=== PATIENT | male | born 1980 ===

== ENCOUNTER 2020-07-25 16:07 | Emergency (ER) | payer SELFPAY ==
--- NOTE | 2020-07-25 18:07 | Event Note ---
ED Screening Note ED Screening Note: Patient is a 40-year-old male presents emergency room complaints of upper abdominal pain that began 4 days ago He has associated abdominal bloating He denies any fever, nausea, vomiting, diarrhea, hematochezia, melena, hematemesis He states he had a normal bowel movement today He states his past abdominal surgical history is appendectomy Has a past medical history of hyperlipidemia, PUD, diabetes He denies any medication allergies He denies any smoking history or drug use He reports he is a heavy alcohol drinker, 6-10 beers a day Patient has generalized upper abdominal tenderness palpation, his abdomen is distended, no guarding or rebound This initial assessment/diagnostic orders/clinical plan/treatment(s) is/are subject to change based on patients health status, clinical progression and re- assessment by fellow clinical providers in the ED. Further treatment and workup at subsequent clinical providers discretion. Patient/guardian urged not to elope from the ED as their condition may be serious if not clinically assessed and managed. Initial orders include: Labs, urine, CT
[2020-07-25 18:41] LABS: Bilirubin,Urine NEG (Negative); Blood,Urine NEG (Negative); Color,Urine Yellow (Yellow); Mucus,Urine 1+ /HPF; Protein,Urine <15 mg/dL mg/dL (Negative); WBC,Urine < 1.0 /HPF (0.0-6.0)
[2020-07-25 19:16] LABS: Basophils % (Auto) 0.6 % (0.0-1.8); Eosinophils # (Auto) 0.3 K/mm3 (0.0-0.4); Eosinophils % (Auto) 3.5 % (0.0-4.3); Hematocrit 43.7 % (35.5-45.6); Hemoglobin 14.7 gm/dl (11.8-15.2); Lymphocytes # (Auto) 2.6 K/mm3 (1.2-5.4); Lymphocytes % (Auto) 30.2 % (13.4-35.0); Mean Corpuscular HGB Conc 34 % (32-34); Mean Corpuscular Volume 93 fl (84-94); Monocytes # (Auto) 0.7 K/mm3 (0.0-0.8); Platelet Count 217 K/mm3 (140-440); Red Blood Count 4.71 M/mm3 (3.65-5.03); Red Cell Distribution Width 12.8 % (13.2-15.2)
[2020-07-25 19:34] LABS: Alanine Aminotransferase 116 units/L (7-56); Albumin 4.4 g/dL (3.9-5); BUN/Creatinine Ratio 14; Blood Urea Nitrogen 10 mg/dL (9-20); Calcium 9.4 mg/dL (8.4-10.2); Hemolysis Index 6
--- NOTE | 2020-07-25 22:56 | Cat Scan Report ---
CT ABDOMEN AND PELVIS WITH CONTRAST HISTORY: upper abd pain, abd distension, heavy ETOH use. COMPARISON: None. TECHNIQUE: CT images of the abdomen and pelvis were obtained following administration of intravenous contrast. All CT scans at this location are performed using CT dose reduction for ALARA by means of automated exposure control. CONTRAST: 100 ml of intravenous contrast administered. FINDINGS: Lungs/bones: Lung bases are clear Abdomen/pelvis: There is diffuse fatty infiltration liver. No focal liver lesion. The spleen, adrena l glands, pancreas, gallbladder and upper GI tract appear normal. Bilateral kidneys appear normal. Pr ior appendectomy is suggested. Portal vein is patent. No varices are seen. No dominant adenopathy. Ur inary bladder appears normal. A few prosthetic calcifications are seen. IMPRESSION: 1. Diffuse fatty infiltration the liver. 2. No other acute findings. Signer Name: Jonny Claros MD Signed: 07/25/2020 10:52 PM Workstation Name: [id number]
--- NOTE | 2020-07-26 00:29 | Emergency Department Report ---
HPI - General Chief Complaint: Pain General Time Seen by Provider: 07/25/20 18:05 - HPI HPI: This is a 40-year-old male who presents to the emergency department with a complaint of abdominal pain and fullness. Initially he says that this started about 6 weeks ago. He went to a clinic and was placed on omeprazole and Bentyl and says that 2 days later all of his symptoms cleared up. However over the past week the symptoms have started up again and have gotten progressively worse. Patient admits that he drinks about 6-10 beers per day, although he denies any history of alcohol dependence or withdrawal symptoms. His abdominal pain and fullness increases with beer drinking. However sometimes it also occurs without any alcohol consumption. Patient has a history of diabetes, GERD, previous gastric ulcer, hyperlipidemia. He was just recently started on Metformin and glipizide from the clinic as well. He denies any fever, nausea, vomiting, constipation, diarrhea, dysuria. Currently his abdominal pain is about a 1 out of 10, but it was worse earlier in the day. ED Past Medical Hx - Past Medical History Previous Medical History?: Yes Hx Diabetes: Yes Hx GERD: Yes Additional medical history: Gastric ulcer, hyperlipidemia - Surgical History Past Surgical History?: Yes Hx Appendectomy: Yes - Social History Smoking Status: Never Smoker Substance Use Type: Alcohol, Prescribed ED Review of Systems ROS: Stated complaint: ABD PAIN Other details as noted in HPI Comment: All other systems reviewed and negative Constitutional: denies: chills, fever Eyes: denies: eye pain, vision change ENT: denies: ear pain, throat pain Respiratory: denies: cough, shortness of breath Cardiovascular: denies: chest pain, palpitations Gastrointestinal: abdominal pain. denies: nausea, vomiting Genitourinary: denies: dysuria, discharge Musculoskeletal: denies: back pain, arthralgia Skin: denies: rash, lesions Neurological: denies: headache, weakness Physical Exam - Physical Exam Vital Signs: Vital Signs 07/25/20 18:02 Temperature 98.8 F Pulse Rate 76 Respiratory 20 Rate Blood Pressure 129/87 Physical Exam: GENERAL: The patient is well-developed well-nourished. HENT: Normocephalic. Atraumatic. Patient has moist mucous membranes. EYES: Extraocular motions are intact. NECK: Supple. Trachea is midline. CHEST/LUNGS: Clear to auscultation. There is no respiratory distress noted. HEART/CARDIOVASCULAR: Regular. There is no tachycardia. There is no murmur. ABDOMEN: Abdomen is soft. No tenderness to palpation. No guarding. Patient has normal bowel sounds. There is no significant abdominal distention. SKIN: Skin is warm and dry. NEURO: The patient is awake, alert, and oriented. The patient is cooperative. The patient has no focal neurologic deficits. Normal speech. MUSCULOSKELETAL: There is no tenderness or deformity. There is no limitation range of motion. ED Course Vital Signs 07/25/20 18:02 Temperature 98.8 F Pulse Rate 76 Respiratory 20 Rate Blood Pressure 129/87 ED Medical Decision Making - Lab Data Result diagrams: 07/25/20 18:38 07/25/20 18:38 Lab Results 07/25/20 07/25/20 07/25/20 Range/Units 18:23 18:38 18:38 WBC 8.5 (4.5-11.0) K/mm3 RBC 4.71 (3.65-5.03) M/mm3 Hgb 14.7 (11.8-15.2) gm/dl Hct 43.7 (35.5-45.6) % MCV 93 (84-94) fl MCH 31 (28-32) pg MCHC 34 (32-34) % RDW 12.8 L (13.2-15.2) % Plt Count 217 (140-440) K/mm3 Lymph % (Auto) 30.2 (13.4-35.0) % [place] % (Auto) 8.0 H (0.0-7.3) % Eos % (Auto) 3.5 (0.0-4.3) % Baso % (Auto) 0.6 (0.0-1.8) % Lymph # (Auto) 2.6 (1.2-5.4) K/mm3 [place] # (Auto) 0.7 (0.0-0.8) K/mm3 Eos # (Auto) 0.3 (0.0-0.4) K/mm3 Baso # (Auto) 0.0 (0.0-0.1) K/mm3 Seg Neutrophils % 57.7 (40.0-70.0) % Seg Neutrophils # 4.9 (1.8-7.7) K/mm3 Sodium 136 L (137-145) mmol/L Potassium 3.8 (3.6-5.0) mmol/L Chloride 99.9 (98-107) mmol/L Carbon Dioxide 26 (22-30) mmol/L Anion Gap 14 mmol/L BUN 10 (9-20) mg/dL Creatinine 0.7 L (0.8-1.3) mg/dL Estimated GFR > 60 ml/min BUN/Creatinine Ratio 14 % Glucose 134 H (75-100) mg/dL Calcium 9.4 (8.4-10.2) mg/dL Total Bilirubin 0.30 (0.1-1.2) mg/dL AST 136 H (5-40) units/L ALT 116 H (7-56) units/L Alkaline Phosphatase 70 (35-129) units/L Total Protein 7.3 (6.3-8.2) g/dL Albumin 4.4 (3.9-5) g/dL Albumin/Globulin Ratio 1.5 % Lipase 71 H (13-60) units/L Urine Color Yellow (Yellow) Urine Turbidity Clear (Clear) Urine pH 5.0 (5.0-7.0) Ur Specific [place] 1.024 (1.003-1.030) Urine Protein <15 mg/dl (Negative) mg/dL Urine Glucose (UA) Neg (Negative) mg/dL Urine Ketones Neg (Negative) mg/dL Urine Blood Neg (Negative) Urine Nitrite Neg (Negative) Urine Bilirubin Neg (Negative) Urine Urobilinogen 2.0 (<2.0) mg/dL Ur Leukocyte Esterase Neg (Negative) Urine WBC (Auto) < 1.0 (0.0-6.0) /HPF Urine RBC (Auto) 1.0 (0.0-6.0) /HPF Urine Mucus 1+ /HPF - Radiology Data Radiology results: report reviewed CT ABDOMEN AND PELVIS WITH CONTRAST HISTORY: upper abd pain, abd distension, heavy ETOH use. COMPARISON: None. TECHNIQUE: CT images of the abdomen and pelvis were obtained following administration of intravenous contrast. All CT scans at this location are performed using CT dose reduction for ALARA by means of automated exposure control. CONTRAST: 100 ml of intravenous contrast administered. FINDINGS: Lungs/bones: Lung bases are clear Abdomen/pelvis: There is diffuse fatty infiltration liver. No focal liver lesion. The spleen, adrenal glands, pancreas, gallbladder and upper GI tract appear normal. Bilateral kidneys appear normal. Prior appendectomy is suggested. Portal vein is patent. No varices are seen. No dominant adenopathy. Urinary bladder appears normal. A few prosthetic calcifications are seen. IMPRESSION: 1. Diffuse fatty infiltration the liver. 2. No other acute findings. - Medical Decision Making This patient presents to the emergency department with a complaint of some abdominal discomfort and fullness. It for started about 6 weeks ago but then went away with treatment of omeprazole and Bentyl. It came back about 1 week ago has been going on intermittently since. It seems to worsen when the patient drinks beer which he does in moderate to large quantities every day. At the time of my examination he does not appear intoxicated. There is no reproducible abdominal tenderness to palpation. Currently the abdomen does not appear distended. Labs were mostly unremarkable except for transaminitis with AST and ALT at about 130 and 110 respectively, as well as a slight elevation in the li pase of about 70. CT scan of the abdomen and pelvis shows fatty liver disease, but otherwise no acute process. No intestinal infection or distention seen. No ascites seen. Vital signs reassuring throughout his ED course including being afebrile. For all these reasons patient appears safe for discharge home at this time. He has been instructed to avoid Tylenol/acetaminophen, any further alcoh ol use, and has been given outpatient referral for gastroenterology. He will continue with his normal diabetes medications, as well as the omeprazole and Bentyl as needed, and will return to the emergency department with any worsening of his symptoms or with any acute distress. Critical Care Time: No Critical care attestation.: If time is entered above; I have spent that time in minutes in the direct care of this critically ill patient, excluding procedure time. ED Disposition Clinical Impression: Transaminitis, Intermittent abdominal pain, Drinks beer Disposition: DC- TO HOME OR SELFCARE Is pt being admited?: No Condition: Stable Instructions: Abdominal Pain, Adult, Alcoholic Liver Disease, Alcoholic Hepatitis Additional Instructions: Please follow-up with your primary care physician in the next few days. I have given you a referral for a local gastroenterology group to follow-up regarding your abdominal pains and elevated liver enzymes. Please do not take a ny Tylenol/acetaminophen. Please avoid any alcohol use/abuse. Return to the emergency department with any worsening of your symptoms, new or concerning symptoms not addressed during this current emergency department visit, or with any acute distress. Referrals: ROSANA HODGES MD [Staff Physician] - 3-5 Days [facility] [Provider Group] - 3-5 Days Time of Disposition: 00:30
[2020-07-26 01:53] VITALS: BP 132/78
== END 2020-07-26 01:52 | disposition home or self-care (01) ==
LOC: ED 16:07
DX: R74.01 Elevation of levels of liver transaminase levels (principal); R10.9 Unspecified abdominal pain; E11.9 Type 2 diabetes mellitus without complications; K21.9 Gastro-esophageal reflux disease without esophagitis; Z72.89 Other problems related to lifestyle; Z90.49 Acquired absence of other specified parts of digestive tract; Z79.899 Other long term (current) drug therapy
CPT/HCPCS: 36415; 74177; 80053; 81001; 83690; 85025; 99284; Q9967